=== PATIENT | female | born 1950 | race Caucasian/White ===

== ENCOUNTER 2022-05-22 07:21 | Day surgery (SDC) | payer MEDICARE ==
[2022-05-15 15:11] LABS: BASOPHILS % (AUTO) 0.6 % (0-1); EOSINOPHILS # (AUTO) 0.1 X10'3 (0-0.9); EOSINOPHILS % (AUTO) 2.2 % (0-6); LYMPHOCYTES # (AUTO) 1.3 X10'3 (1.1-4.8); LYMPHOCYTES % (AUTO) 26.4 % (21-51); MEAN CORPUSCULAR HEMOGLOBIN 33.2 PG (27.0-31.0); MEAN CORPUSCULAR HGB CONC 33.6 g/dL (33.0-36.5); MEAN CORPUSCULAR VOLUME 98.7 FL (78-98); MEAN PLATELET VOLUME 8.1 FL (7.4-10.4); MONOCYTES # (AUTO) 0.5 X10'3 (0-0.9); MONOCYTES % (AUTO) 10.4 % (2-12); NEUTROPHILS % (AUTO) 60.4 % (42-75); PRE OP HEMATOCRIT 41.3 % (35.0-45.0); PRE OP HEMOGLOBIN 13.9 g/dL (12.0-16.0); PRE OP PLATELET COUNT 218 X10'3 (140-440); RED BLOOD COUNT 4.18 X10'6 (4.20-5.60); RED CELL DISTRIBUTION WIDTH 13.6 % (11.5-14.5)
[2022-05-15 15:25] LABS: ALBUMIN 3.9 G/DL (3.4-5.0); ALBUMIN/GLOBULIN RATIO 1.4 (1.1-1.5); ALKALINE PHOSPHATASE 68 IU/L (46-116); BLOOD UREA NITROGEN 25 MG/DL (7-18); BUN/CREATININE RATIO 32.9 (6.6-38.0); CALCIUM 9.5 MG/DL (8.5-10.1); CHLORIDE 104 MMOL/L (99-107); CREATININE 0.76 MG/DL (0.40-0.90); PRE OP ALT 26 U/L (30-65); PRE OP ANION GAP 6 (8-16); PRE OP AST 19 U/L (10-37); PRE OP BILIRUB, TOTAL 0.3 MG/DL (0.0-1.0); PRE OP GLUCOSE 91 MG/DL (70-104); PRE OP POTASSIUM 4.1 MMOL/L (3.4-5.1); PRE OP SODIUM 140 MMOL/L (135-145); TOTAL CARBON DIOXIDE 29.7 MMOL/L (24-32); TOTAL PROTEIN 6.6 G/DL (6.4-8.2); eGFR 75 ML/MIN
[~2022-05-22] VITALS: Ht 162.6 cm; Wt 71.5 kg
[2022-05-22] VITALS (8 sets, daily range): BP systolic 111–131; BP diastolic 71–91
[~2022-05-22 07:21] MED LIST: ACETAMINOPHEN PO; ALBU6.7H14 INH; ASHWAGANDHA; BACL-11 PO; BIOTIN; BUSP10TA3 PO; CHOL200074 PO; EVENING PRIMROSE; FOCUS FACTOR; GABA-530 PO; GLUCOSAMINE; L LYSINE; MAGN400T52 PO; MATURE MULTI VITAMIN; MELA5TAB12 PO; MONT-40 PO; PROBIOTIC; PSEU-259 PO; RED YEAST; SALMON OIL; SERT-433 PO; TUMERIC; TUMERIC PO; VITAMIN B12; [UNRECOGNIZED DRUG - OTHER]; [UNRECOGNIZED DRUG - OTHER] PO; ceFAZolin inj. 2,000 MG in dextrose 5%-water 100 ML IV ONE; famotidine 20mg tablet PO ONE; ringers solution, lacted 1,000 ML IV SCH
[2022-05-22] MEDS ORDERED: HYDROcodone/acetaminophen 5mg/325mg tablet PO PRN (09:00)
[2022-05-22] MEDS ORDERED: BUPIVAcaine 0.5% inj/PF 30 ML ONE (09:06)
[2022-05-22] MEDS ORDERED: LIDOcaine 1% 30ml preserv. free vial ONE (09:06)
[2022-05-22] MEDS ORDERED: sevoflurane 250ml liquid IH ONE (09:20)
[2022-05-22] MEDS ORDERED: HYDROmorphone/PF 0.2 MG/ML SYRINGE IV PRN ×2 (09:20)
[2022-05-22] MEDS ORDERED: ringers solution, lacted 1,000 ML IV SCH (09:20)
[2022-05-22] MEDS ORDERED: fentaNYL/PF 50MCG/1 ML 2ML syringe ONE (09:20)
[2022-05-22] MEDS ORDERED: morphine 2 MG/ML inj. syringe IV PRN (09:20)
[2022-05-22] MEDS ORDERED: dexamethasone sod phosphate 10mg/ml inj ONE (09:20)
[2022-05-22] MEDS ORDERED: ondansetron/PF 4mg/2ml inj IV PRN (09:20)
[2022-05-22] MEDS ORDERED: BUPIVAcaine 0.5% inj/PF 30 ml vial IJ ONE (09:48)
[2022-05-22] MEDS ORDERED: neostigmine methylsulfate 1 MG/ML 10ml vial ONE (10:07)
[2022-05-22] MEDS ORDERED: acetaminophen 1,000mg/100ml IV 100 ML IV ONE (10:07)
[2022-05-22] MEDS ORDERED: LIDOcaine 2% (20mg/ml) 5ml vial ONE (10:07)
[2022-05-22] MEDS ORDERED: propofol inj 20 ML IV ONE (10:07)
[2022-05-22] MEDS ORDERED: glycopyrrolate 0.2mg/ml inj ONE (10:07)
[2022-05-22] MEDS ORDERED: rocuronium 10mg/ml inj IV ONE (10:07)
[2022-05-22] MEDS ORDERED: ondansetron/PF 4mg/2ml inj ONE (10:07)
--- NOTE | 2022-05-22 10:18 | NUR ---
Received from OR via [facility], accompanied by Anesthesiologist DR HARMON and report given by Anesthesiologist AND TORCH SHEARER. PT VERY DROWSY, DENIES PAIN, NO S/S OF DISTRESS/DISCOMFORT, ABDOMEN WITH 3/LAP SITES W/BAND AIDS CDI. Addendum: 05/22/22 at 1049 by Mary Perry RN Amended: Links added.
--- NOTE | 2022-05-22 11:55 | NUR ---
PT DRESSED, UP AND AMBULATING, STABLE ON FEET, D/C INSTRUCTIONS GIVEN AND GONE OVER W/PT WHO VERBALIZED UNDERSTANDING, PT WAITING FOR HER RIDE. Addendum: 05/22/22 at 1158 by Mary Perry RN Amended: Links added.
--- NOTE | 2022-05-22 11:58 | NUR ---
PTS RIDE ARRIVED, PT DC/D TO HOME VIA W/C TO PRIVATE VEHICLE W/O INCIDENT. Addendum: 05/22/22 at 1226 by Mary Perry RN Amended: Links added.
== END 2022-05-22 11:58 | disposition home or self-care (01) ==
LOC: PAS 07:21
PROVIDERS: ATTEND Surgery
DX: K40.90 Unilateral inguinal hernia, without obstruction or gangrene, not specified as recurrent (principal); F41.9 Anxiety disorder, unspecified; F32.9 Major depressive disorder, single episode, unspecified; G62.9 Polyneuropathy, unspecified; J45.909 Unspecified asthma, uncomplicated; G43.909 Migraine, unspecified, not intractable, without status migrainosus; G89.29 Other chronic pain; Z88.0 Allergy status to penicillin; Z79.899 Other long term (current) drug therapy; Z88.2 Allergy status to sulfonamides; Z96.653 Presence of artificial knee joint, bilateral; Z98.890 Other specified postprocedural states
CPT/HCPCS: 36415; 49650; 80053; 82948; 85025; C1781; J0131; J0690; J1100; J2405; J2704; J2710; J3010; J3490; J7030; J7060; J7120; S0020; Z7506; Z7512; A4215; A4618